=== PATIENT | male | born 1945 | race Caucasian/White ===

== ENCOUNTER 2022-02-21 16:49 | Emergency (ER) | payer MEDICARE, MEDICAID ==
[~2022-02-21] VITALS: Ht 165.1 cm; Wt 68.0 kg
[2022-02-21 17:24] VITALS: BP 110/68
--- NOTE | 2022-02-21 17:42 | NUR ---
76 YO M BIBS W C/O OF HEADACHE, NECK AND BACK PAIN X 15 DAYS. PT TATES HIS ARMS FEEL HEAVY. "I HAVE ANXIETY ABOUT MY SYMPTOMS" MEDS: GABAPENTIN, TAMSULOSIN KNDA PMH: DENIES
--- NOTE | 2022-02-21 18:13 | NUR ---
PT AMBULATED TO RESTROOM TO PROVIDE URINE
[2022-02-21] MEDS ORDERED: KETOROLAC 60 MG/2 ML VIAL IM ONE (18:50)
[2022-02-21] MEDS ORDERED: CIPR500T4 PO (19:46)
[2022-02-21] MEDS ORDERED: IBUP-2213 PO (19:46)
[2022-02-21] MEDS ORDERED: ACET-8386 PO (19:46)
--- NOTE | 2022-02-21 20:41 | NUR ---
PT HAD PENDING DISHCHARGE AND LEFT WITHOUT DISCHARGE PAPERWORK
== END 2022-02-21 20:41 | disposition home or self-care (01) ==
LOC: MED 16:49
DX: R51.9 Headache, unspecified (principal); R19.7 Diarrhea, unspecified
CPT/HCPCS: 81002; 96372; 99283; J1885

== ENCOUNTER 2023-11-26 09:52 | Emergency (ER) | payer MEDICARE, MEDICAID ==
[~2023-11-26] VITALS: Ht 167.6 cm; Wt 45.4 kg
[~2023-11-26 09:52] MED LIST: ACET-8905 PO; CIPR500T4 PO; IBUP-2213 PO
[2023-11-26 09:59] VITALS: BP 75/29; PULSE 135; RESP 30; TEMP 98.6; O2SAT 75
[2023-11-26] MEDS ORDERED: NOREPINEPHRINE 4 MG/4 ML VIAL IV ONE ×4 (10:03→13:30)
[2023-11-26 10:13] VITALS: PULSE 126; O2SAT 94
[2023-11-26] MEDS: NOREPINEPHRINE 4 MG in DEXTROSE 5% 250 ML IV ONE ×3 (10:35→13:08)
[2023-11-26 10:36] LABS: BLOOD GAS BASE EXCESS -12.6 mmol/L (-2.0-2.0); BLOOD GAS HCO3 14.8 mmol/L (22-26); BLOOD GAS PCO2 39.9 mmHg (35-45); BLOOD GAS PH 7.186 (7.35-7.45); BLOOD GAS PO2 119.4 mmHg (75-100)
[2023-11-26 10:37] LABS: BLOOD GAS O2 SAT% 96.9 % (92.0-98.5)
[2023-11-26 10:45] LABS: BASOPHILS % (AUTO) 0.1 % (0.0-2.0); HEMATOCRIT 30.8 % (36-52); HEMOGLOBIN 10.1 g/dL (12.0-18.0); LYMPHOCYTES # (AUTO) 0.7 K/uL (2.0-11.5); LYMPHOCYTES % (AUTO) 17.1 % (20.5-51.1); MEAN CORPUSCULAR HEMOGLOBIN 29 pg (27-31); MEAN CORPUSCULAR HGB CONC 33 g/dL (33-37); MEAN CORPUSCULAR VOLUME 88.5 fL (80-94); MONOCYTES # (AUTO) 0.3 K/uL (0.8-1.0); MONOCYTES % (AUTO) 6.9 % (1.7-9.3); NEUTROPHILS # (AUTO) 3.2 K/uL (1.8-7.7); NEUTROPHILS % (AUTO) 75.9 % (42.2-75.2); PLATELET COUNT (AUTO) 199 K/uL (140-450); RED BLOOD CELL COUNT(AUTO) 3.48 MIL/uL (4.20-6.10); RED CELL DISTRIBUTION WIDTH 23.6 % (11.6-13.7); WHITE BLOOD COUNT (AUTO) 4.2 K/uL (4.8-10.8)
[2023-11-26] MEDS ORDERED: PIPERACILLIN/TAZOBACTAM 3.375 GM VIAL IV ONE (10:50)
[2023-11-26] MEDS ORDERED: VANCOMYCIN 1,000 MG VIAL ONE (10:50)
[2023-11-26 10:55] LABS: INR 1.52 (0.8-1.2); PARTIAL THROMBOPLASTIN TIME 29.9 secs (22-35.6); PROTHROMBIN TIME 15.6 secs (10.8-13.4)
[2023-11-26 11:03] LABS: ALANINE AMINOTRANSFERASE 9 U/L (12-78); ALBUMIN 1.1 g/dL (3.4-5.0); ALKALINE PHOSPHATASE 77 U/L (50-136); ASPARTATE AMINOTRANSFERASE 36 U/L (15-37); BILIRUBIN,DIRECT 0.3 mg/dL (0.0-0.3); CREATINE KINASE, TOTAL 405 U/L (39-308); LIPASE 5 U/L (16-77); TOTAL BILIRUBIN 0.8 mg/dL (0.0-1.0); TOTAL PROTEIN, SERUM 4.8 g/dL (6.4-8.2)
[2023-11-26 11:12] LABS: LACTIC ACID 9.6 mmol/L (0.4-2.0)
[2023-11-26] MEDS: PIPERACILLIN/TAZOBACTAM 3.375 GM in DEXTROSE 5% 50 ML IV ONE (11:12)
[2023-11-26] MEDS: VANCOMYCIN 1,000 MG in DEXTROSE 5% 250 ML IV ONE (11:13)
[2023-11-26 11:41] LABS: CALCIUM 6.5 mg/dL (8.5-10.1); CARBON DIOXIDE 19.6 mmol/L (21-32); CHLORIDE 101 mmol/L (98-107); CREATININE 1.7 mg/dL (0.6-1.3); GLUCOSE 81 mg/dL (74-106); POTASSIUM 3.6 mmol/L (3.5-5.1); SODIUM SERUM 135 mmol/L (136-145); UREA NITROGEN, BLOOD 22 mg/dL (7-18)
[2023-11-26] MEDS: NACL 0.9% 1,500 ML IV SCH (11:47)
[2023-11-26 12:00] LABS: APPEARANCE,URINE SLIGHTLY HAZY (CLEAR); BILIRUBIN,URINE 1+ (NEGATIVE); BLOOD, URINE 3+ (NEGATIVE); COLOR,URINE YELLOW (YELLOW); LEUKOCYTE ESTERASE ,URINE NEGATIVE (NEGATIVE); NITRITE, URINE NEGATIVE (NEGATIVE); PROTEIN,URINE 1+ (NEGATIVE); UGLUCOSE TRACE (NEGATIVE)
[2023-11-26 12:11] LABS: CKMB RELATIVE INDEX 0.1 (0.0-2.5); CREATINE KINASE MB 0.4 ng/mL (0-3.6)
[2023-11-26 12:19] LABS: FLU A ANTIGEN negative (NEGATIVE); FLU B ANTIGEN NEGATIVE (NEGATIVE); ICTOTEST NEGATIVE (NEGATIVE)
[2023-11-26 12:21] LABS: BACTERIA,URINE OCCASSIONAL /HPF (None Seen); MUCUS,URINE 1+ /LPF (None Seen); SQUAMOUS EPITHELIAL CELL,UR 0-3 (FEW) /LPF (0-3 (FEW)); WBC,URINE 0-5 /HPF (0-5)
[2023-11-26] MEDS ORDERED: VASOPRESSIN 20 UNITS/ML VIAL ONE (13:01)
[2023-11-26] MEDS ORDERED: VASOPRESSIN 20 UNITS in NACL 0.9% 100 ML IV PRN (13:05)
[2023-11-26 13:10] VITALS: TEMP 98.1
[2023-11-26 13:30] VITALS: BP 41/22; PULSE 24; RESP 28; O2SAT 62
== END 2023-11-26 13:40 ==
LOC: MED 09:52
DX: A41.9 Sepsis, unspecified organism (principal); Z20.822 Contact with and (suspected) exposure to COVID-19; J96.91 Respiratory failure, unspecified with hypoxia; R65.21 Severe sepsis with septic shock; I46.9 Cardiac arrest, cause unspecified; E87.20 Acidosis, unspecified; N17.9 Acute kidney failure, unspecified; Z85.118 Personal history of other malignant neoplasm of bronchus and lung; Z79.899 Other long term (current) drug therapy
CPT/HCPCS: 36415; 36600; 71045; 80048; 80076; 81001; 82550; 82553; 82803; 83605; 83690; 83880; 84484; 85025; 85610; 85730; 87040; 87086; 87186; 87426; 87804; 93005; 96365; 96366; 96368; 99291; J2543; J3370; J3490; J7030; Q0092